=== PATIENT | female | born 1970 | race African-American/Black ===

== ENCOUNTER → 2016-10-17 | Outpatient (CLI) | payer OTHER ==
[~2016-10-17] MED LIST: AMLODIPINE BESY10 MG PO; CALCIUM; CELLCEPT500 MG PO; HYDROXYZINE HCL50 MG PO; METOCLOPRAMIDE10 MG PO; MORPHINE; NEPHROCAPS SOFT1 CAP PO; NORCO 5-325 TA1 EACH PO; NUMOISYN300 ML; PREDNISONE 5 MG5 MG PO; YAZ
== END ==
LOC: MRI 09:18
DX: M47.892 Other spondylosis, cervical region (principal)

== ENCOUNTER → 2017-04-09 | Outpatient (CLI) | payer OTHER | LOC: ULTRA 08:20 | DX: K76.0 Fatty (change of) liver, not elsewhere classified (principal) ==

== ENCOUNTER → 2017-04-09 | Outpatient (CLI) | payer OTHER | LOC: CAT 08:25 | DX: Z13.6 Encounter for screening for cardiovascular disorders (principal) ==

== ENCOUNTER → 2017-09-17 | Outpatient (CLI) | payer OTHER | LOC: RAD 07:18 | DX: K21.9 Gastro-esophageal reflux disease without esophagitis (principal); K44.9 Diaphragmatic hernia without obstruction or gangrene; R12 Heartburn ==

== ENCOUNTER → 2020-06-23 | Outpatient (CLI) | payer OTHER | LOC: LAB 07:34 | PROVIDERS: ATTEND Anesthesiology | DX: Z01.812 Encounter for preprocedural laboratory examination (principal); Z20.828 Contact with and (suspected) exposure to other viral communicable diseases ==

== ENCOUNTER → 2020-07-03 | Outpatient (CLI) | payer OTHER | LOC: CAT 15:26 | PROVIDERS: ATTEND Nurse Practitioner | DX: K42.9 Umbilical hernia without obstruction or gangrene (principal); K44.9 Diaphragmatic hernia without obstruction or gangrene ==

== ENCOUNTER → 2020-07-17 | Outpatient (CLI) | payer OTHER | LOC: LAB 12:32 | PROVIDERS: ATTEND Anesthesiology | DX: Z01.812 Encounter for preprocedural laboratory examination (principal); Z20.828 Contact with and (suspected) exposure to other viral communicable diseases ==

== ENCOUNTER → 2020-09-06 | Outpatient (CLI) | payer OTHER | LOC: LAB 09:58 | PROVIDERS: ATTEND Nurse Practitioner | DX: J02.9 Acute pharyngitis, unspecified (principal); R50.9 Fever, unspecified; M79.10 Myalgia, unspecified site; Z20.822 Contact with and (suspected) exposure to COVID-19 ==

== ENCOUNTER → 2020-10-18 | Outpatient (CLI) | payer OTHER | LOC: CAT 09:05 | PROVIDERS: ATTEND Nurse Practitioner | DX: Z13.6 Encounter for screening for cardiovascular disorders (principal); I25.10 Atherosclerotic heart disease of native coronary artery without angina pectoris; E78.00 Pure hypercholesterolemia, unspecified; K44.9 Diaphragmatic hernia without obstruction or gangrene ==

== ENCOUNTER → 2021-02-08 | Outpatient (CLI) | payer OTHER | LOC: ULTRA 09:13 | PROVIDERS: ATTEND Nurse Practitioner | DX: N83.291 Other ovarian cyst, right side (principal); Z90.710 Acquired absence of both cervix and uterus; Z90.721 Acquired absence of ovaries, unilateral ==

== ENCOUNTER → 2021-02-20 | Outpatient (CLI) | payer OTHER | LOC: CAT 08:02 | PROVIDERS: ATTEND Nurse Practitioner | DX: R18.8 Other ascites (principal); D72.829 Elevated white blood cell count, unspecified; R10.9 Unspecified abdominal pain ==

== ENCOUNTER → 2021-05-01 | Outpatient (CLI) | payer OTHER | LOC: RAD 10:15 | PROVIDERS: ATTEND Nurse Practitioner | DX: Z01.818 Encounter for other preprocedural examination (principal); Z12.31 Encounter for screening mammogram for malignant neoplasm of breast ==

== ENCOUNTER 2021-06-18 09:22 | Inpatient (IN) | payer OTHER ==
[~2021-06-18] VITALS: Ht 157.5 cm; Wt 73.5 kg
[2021-06-18 09:25] VITALS: BP 97/68
[2021-06-18 11:09] LABS: HEMATOCRIT 34.3 % (37.0-47.0); HEMOGLOBIN 11.1 gm/dL (12.0-15.0); MCH 28.7 pg (26.0-34.0); MCHC 32.4 g/dL (28.0-37.0); MCV 88.6 fL (80.0-100.0); PLATELET COUNT 634 thou/uL (150-400); RBC 3.87 mil/uL (4.20-5.00); RDW 13.9 % (10.5-14.5); WBC 16.2 thou/uL (4.0-11.0)
[2021-06-18 11:11] LABS: CALCIUM 9.4 mg/dL (8.5-10.1); CREATININE 0.6 mg/dL (0.6-1.0); POTASSIUM 4.3 mmol/L (3.5-5.1)
[2021-06-18 11:17] LABS: ALBUMIN 2.2 g/dL (3.4-5.0); TOTAL BILIRUBIN 0.2 mg/dL (0.2-1.0); TOTAL PROTEIN 6.5 g/dL (6.4-8.2)
[2021-06-18 12:54] LABS: METAMYELOCYTES 1 %; MYELOCYTES 1 %
[2021-06-18 12:55] LABS: ABSOLUTE NEUTROPHILS 11.8 thou/uL (1.4-8.2); ANISOCYTOSIS 1+
[2021-06-18 17:45] VITALS: BP 109/61
[2021-06-18 18:00] VITALS: BP 108/66
[2021-06-18 18:15] VITALS: BP 108/67
[2021-06-18 18:30] VITALS: BP 101/62
--- NOTE | 2021-06-18 18:48 | NUR ---
Patient arrived from surgery at 1745. IV to right hand not working, attempted to place, unsuccessful. Informed charge nurse and paged IV team, still awaiting response. Patient is AOX4 recieved pain medications, resting comfortably in bed. at bedside. All questions and concerns addressed
[2021-06-18 21:02] VITALS: BP 110/55
--- NOTE | 2021-06-19 03:49 | NUR ---
ASSUMED PT CARE THIS PM. PT IS ALERT AND ORIENTED X4. PT IS ADB INCISION WITH 3 LAURY DRAINS OF WHICH 2 CANNOT BE COMPRESSED DUE TO AIR LEAKAGE OF WHICH WAS INFORMED OF. PT C/O PAIN WHICH WAS MANAGED BY PRN AND SCHEDULED. PT DID NOT C/O DIZZINES OR N/V. PT IS SBA TO THE BR. PT IS ON RA. FALL PRECAUTIONS IN PLACE. WILL CONTINUE TO MONITOR.
[2021-06-19 05:57] LABS: HEMATOCRIT 29.9 % (37.0-47.0); HEMOGLOBIN 9.9 gm/dL (12.0-15.0); MCV 88.1 fL (80.0-100.0); RBC 3.39 mil/uL (4.20-5.00); RDW 13.7 % (10.5-14.5); WBC 13.6 thou/uL (4.0-11.0)
[2021-06-19 06:15] LABS: ALBUMIN 1.9 g/dL (3.4-5.0); CALCIUM 8.6 mg/dL (8.5-10.1); CREATININE 0.8 mg/dL (0.6-1.0); PHOSPHORUS 4.5 mg/dL (2.5-4.9); POTASSIUM 3.5 mmol/L (3.5-5.1)
[2021-06-19 06:37] VITALS: BP 98/61
[2021-06-19 07:43] VITALS: BP 96/55
[2021-06-19] MEDS ORDERED: HYDROXYZINE HCL50 MG PO ×2 (12:40→13:15)
[2021-06-19] MEDS ORDERED: CELLCEPT500 MG PO (12:41)
[2021-06-19] MEDS ORDERED: CYMBALTA60 MG PO (12:42)
[2021-06-19] MEDS ORDERED: COZAAR 25 MG TA25 M1 PO (12:43)
[2021-06-19] MEDS ORDERED: RIZATRIPTAN10 M1 PO (12:44)
[2021-06-19] MEDS ORDERED: LEVO-T50 MCG PO (12:44)
[2021-06-19] MEDS ORDERED: KLOR-CON 1010 MEQ PO (12:45)
[2021-06-19 16:55] VITALS: BP 94/54
--- NOTE | 2021-06-19 17:09 | NUR ---
Pt A & O x4. Pt Vs stable. Pt received medications as ordered. Pt received PRN medications as requested by pt. Pt ambulates to bathroom. Pt has [address] Pt is x 1 assist with ADLs and cares. This AM pt was asked by this nurse and tech after giving care to pt if pt needed any other assistance. Pt stated "no, I am fine". Pt was given PRN pain medications see MAR. This AM, Pt did not state to this RN or tech that her ABD dressing needed to be changed and bled through dressing onto bedding. Management was notified of this incident. This RN and tech changed pt bedding and this RN changed wound dressing. Dr Madrigal was also at bedside and assessed wound. Dr. Madrigal also was re notified of SUPRIYA drains not suctioning. Pt was assisted to bathroom after wound dressing changed. Pt gait steady. Pt SCDs placed on pt bilat legs and pump turned on after she went to bathroo. This afternoon pt had nausea. Dr. Nicole notified and pt received new order for nausea medications. pt received nausea medications, see MAR. Pt also received new IV to left upper arm, by PICC nurse. Old IV was burning pt. Nurse and tech with hourly rounding asked to pt if we can assess her ABD dressing to see if it needed changing and pt replied "no, everything is fine". Pt is able to make needs known
[2021-06-19 20:56] VITALS: BP 101/48
[2021-06-20 06:07] VITALS: BP 107/60
[2021-06-20 06:09] LABS: HEMATOCRIT 30.4 % (37.0-47.0); HEMOGLOBIN 9.9 gm/dL (12.0-15.0); MCH 28.9 pg (26.0-34.0); MCHC 32.4 g/dL (28.0-37.0); RBC 3.41 mil/uL (4.20-5.00); RDW 13.9 % (10.5-14.5); WBC 11.8 thou/uL (4.0-11.0)
[2021-06-20 06:27] LABS: CREATININE 0.7 mg/dL (0.6-1.0); POTASSIUM 3.8 mmol/L (3.5-5.1)
--- NOTE | 2021-06-20 06:28 | NUR ---
PT BEEN RESTING IN NO ACUTE DISTRESS.A/OX4.VSS.PAIN MEDS GIVEN SCHEDULED AND PRN PER PT REQUEST.PT VOICED PAIN THAT PAIN HAS BEEN CONTROLLED.ABD WOUND WITH DRESSING INTACT.LAURY DRAINS WITH TOTAL OF 20CC OF SEROSANNGUIOUS DRAINAGE.AMBULATED W/STEADY GAIT TO BR.NO COMPLAINS OR NEEDS VOICED BY THE PT AT THIS TIME.WILL CONT TO MONITOR PER POC.
--- NOTE | 2021-06-20 09:07 | NUR ---
RD consult received. Admit with wound infection s/p adominoplasty in May 2021. Surgery following, likely will have wound vac soon. Visit this am, pt eating well and tolerates high protein foods. No significant wt changes. Uses Premiere protein drinks and agrees to Ensure Max while here. Has menu to order own food selections. Low nutrition risk with appropriate nutrition interventions in place
--- NOTE | 2021-06-20 11:28 | NUR ---
PT ADMITTED RELATED TO POST OP INFECTION. CM REVIEWED CHART AND SPOKE WITH CARE TEAM. CM MET WITH PT AND SPOUSE AT BEDSIDE YESTERDAY. PT WAS A&O 4. CM ROLE INTRODUCED. PT INDICATED SHE RESIDES IN A HOUSE WITH HER SPOUSE WITH 3 STEPS TO ENTER AND 16 INSIDE. PT INDICATED SHE HAD BEEN INDEPENDENT WITH GAIT AND ADLS ALTHOUGH SHE HAD NEEDED SOME ASSISTANCE SINCE HER RECENT SURGERY. PT INDICATED NO HH OR OP THERAPY HX. PT HAD SURGERY AND HAS ABD DRAIN. PT IS ON IV VANC. CARE TEAM INDICATED THAT PT IS TO HAVE SURGERY AGAIN TOMORROW AND WILL HAVE A WOUND VAC ADMINISTERED. CM FOLLOWING REGARDING DC PLANNING.
--- NOTE | 2021-06-20 15:08 | NUR ---
PICC PLACED FOR HOME ABX
--- NOTE | 2021-06-20 17:20 | HC ---
[facility] [place] [address] CONSULTATION Name: HIREN GASTELUM Room #: 460-P [facility] IN M.R.#: [id number] Admission: 06/18/21 Attend Phys: Klaus Madrigal MD Discharge: Date of : 72 Report #: [id number] THIS REPORT FOR: cc: Christina Willis Beth RNP Althoff, Jeffrey R. MD ~ DATE OF SERVICE: 06/19/2021 CHIEF COMPLAINT: Surgical wound to the abdominal wall. HISTORY: This is a 50-year-old female patient who underwent an abdominoplasty in [place] by a plastic surgeon on 06/02/2021, she was complicated by postoperative hemorrhage requiring an ICU stay and reoperation. She received multiple transfusions, has developed necrosis in the periumbilical region. She has undergone some debridement here. I have been asked to see her with regard to wound care recommendations. PAST MEDICAL HISTORY: Positive for history of scleroderma, previous . She has prior breast implants, had previous ectopic , previous hysterectomy, cholecystectomy, anxiety, Raynaud's, fibromyalgia, sleep apnea, hypertension, gastroesophageal reflux disease, and sickle cell trait. SOCIAL HISTORY: Positive for occasional marijuana use. Negative for other tobacco use. Occasional alcohol consumption. MEDICATIONS: Include metoclopramide, amlodipine, hydroxyzine, prednisone, morphine, CellCept, Flaxseed, calcium, B complex. ALLERGIES: TOPIRAMATE AND LATEX. REVIEW OF SYSTEMS: CONSTITUTIONAL: The patient denies fever, chills, weight loss. NEUROLOGICAL: The patient denies focal weakness, tingling. EYES: The patient denies visual changes, redness or drainage. ENT: The patient denies earache, nasal drainage or sore throat. CARDIOVASCULAR: The patient denies chest pain, palpitations or diaphoresis. PULMONARY: The patient denies cough or shortness of breath. GASTROINTESTINAL: The patient denies nausea or diarrhea. Does have abdominal pain in the periumbilical region. Others systems in a 14-point review of systems are negative. PHYSICAL EXAMINATION: VITAL SIGNS: At this time include temperature 35.8, pulse 95, respiratory rate of 18, blood pressure 96/55. GENERAL: This is a well-developed female [place] [address] CONSULTATION Name: HIREN GASTELUM Room #: 460-P [facility] IN M.R.#: [id number] Admission: 06/18/21 Attend Phys: Klaus Madrigal MD Discharge: Date of : 72 Report #: [id number] distress. HEENT: Head normocephalic. Nose and throat clear. NECK: Supple. LUNGS: Clear. ABDOMEN: Soft. There is a surgical incision across the lower portion of the abdominal wall. The lateral portions appeared to be healing. In the central area, there is open wound in the periumbilical region. The umbilicus is preserved. There is some subcutaneous fat that appears to be viable, a very little granulation tissue, some dry eschar-type tissue on the caudal aspect of the incision line. There is mild tenderness. No obvious purulence at this time. NEUROLOGIC: The patient is alert and oriented and appropriate. LABORATORY STUDIES: Sodium 140, potassium 3.5, chloride 105, CO2 of 24, BUN 8, creatinine 0.8, glucose of 81. White blood cell count 13.6 with a hemoglobin of 9.9, hematocrit of 29.9. CLINICAL IMPRESSION: 1. Surgical wound to the abdominal wall, status post postoperative hemorrhage following abdominoplasty in [place], 06/02/2021, now status post additional debridement here, 06/18/2021. 2. Anxiety. 3. History of fibromyalgia. 4. History of hypertension. 5. Possible history of scleroderma. RECOMMENDATIONS: At this point in time, recommend a quarter strength Dakin's moist gauze packing for now. She has antibiotics ordered. We discussed this case with Dr. Madrigal. She may require additional debridement. We will consider placing a wound VAC in order to facilitate wound healing. It is questionable as to whether the umbilicus will ultimately survive or not. The patient has specifically asked about vacationing in [place] and getting in the water and I have instructed that she not do so until all wound issues have resolved and I do not think that these will be resolved by July. I discussed this in detail with the patient and her family at bedside as well as with Dr. Madrigal. I appreciate being asked to see her in consultation. <ELECTRONICALLY SIGNED> By: Chidi Ellis MD 06/20/21 1720 1049 [id number] Chidi Ellis MD /nt
--- NOTE | 2021-06-20 19:22 | NUR ---
Pt A & O x4. Pt received medications as ordered and also received PRN medications as requested by pt, see MAR. Pt is SBA with cares and ADLs. SCDs in place to bilat legs. Pt wound dressing changed twice this shift. Pt is room air. Pt was assisted with call light with other floor nurse, and pt stated she wanted her wound dressing to be changed and asked for this RN. Staff reported to this RN that pt was assertive and not pleasant with other staff with pt requests in a demanding demeanor. Pt VS stable. PT is able to make needs known. Nurse activity manager was notified by pt.
[2021-06-20 19:40] VITALS: BP 109/44
[2021-06-21 05:18] VITALS: BP 102/64
--- NOTE | 2021-06-21 06:39 | NUR ---
PT BEEN RESTING IN NO ACUTE DISTRESS.SPOUSE AT BEDSIDE AT THE BEGINNING OF THE SHIFT.VSS.PT A/OX4.DENIES ANY NEEDS. PT HERE W/POST-OPE INFECTION,IVF ANTIBIOTICS.REDRESSED ABD SURGICAL WOUND X1 DUE TO DRESSING BEING SATURATED,TOLERATED.PAIN MEDS GIVEN PER PT'S REQUEST AND PER SEP.PT STATED PAIN WELL CONTROLLED.NPO AFTER MIDNIGHT FOR SURGERY TODAY.LAURY DRAINS WITH SMALL AMOUT OF DRAINAGE.PT REFUSED SCDS THROUGHOUT THE NOC.PREFERED TO SLEEP W/O GOWN ON.PT DENIES ANY NEEDS THIS AM.WILL CONT W/POC.
[2021-06-21 08:00] VITALS: BP 113/72
[2021-06-21 10:42] VITALS: BP 123/73
--- NOTE | 2021-06-21 12:07 | PATH ---
[facility] [address] [place] [address] PATHOLOGY RPT PROCEDURE Name: HIREN BARRIENTOS Room #: 460-P ADM IN M.R.#: [id number] Admission: 06/18/21 Date of : 72 Discharge: Report #: [id number] Path Case #: [id number] [facility] Accession Number: [id number] . 01 Material submitted: . abdomen - ABDOMINAL WALL WOUND TISSUE. Modifiers: wall . 01 Clinical history: . INCISION AND DRAINAGE ABDOMINAL WALL . 02 Diagnosis: Abdominal wall wound tissue, excision: - Skin and soft tissue with gangrenous type necrosis and fat necrosis. - Negative for atypia or malignancy. (ANK:pit; 06/20/2021) QTP 06/20/2021 1353 Local . 02 Electronically signed: . Basia Hinds MD, Pathologist NPI- [id number] . 01 Gross description: . The specimen is received in formalin, labeled "Hiren Barrientos, abdominal wall wound tissue". Received is an irregular segment of light zaidi to dark zaidi and dusky skin with underlying soft tissue measuring 4.5 x 1.0 x 2.2 cm. The specimen is serially sectioned and submitted representatively in cassette A1.([facility]; 06/19/2021) [facility] 06/19/2021 1345 Local . 02 Pathologist provided ICD-10: I96, M79.89 . 02 CPT . 236712 Specimen Comment: A courtesy copy of this report has been sent to [phone] Specimen Comment: [id number] Specimen Comment: Report sent to / DR STORY Specimen Comment: A duplicate report has been generated due to demographic updates. Performed at: 01 [place] [id number] [address] [id number] MD Markus Murry MD Phone: [phone] Performed at: [address] [id number] [address] [address] PATHOLOGY RPT PROCEDURE Name: XIOMARA BARRIENTOSAnitha Baugh Room #: 460-P ADM IN M.R.#: [id number] Admission: 06/18/21 Date of : 72 Discharge: Report #: [id number] Path Case #: [id number] MD Erika Wang MD Phone: [phone]
--- NOTE | 2021-06-21 16:56 | NUR ---
CARE TEAM INDICATED THAT PT IS HAVING WASH OUT THIS DAY AND A WOUND VAC ADMINISTERED. CM FOLLOWING REGARDING DC PLANNING.
--- NOTE | 2021-06-21 20:08 | NUR ---
PATIENT ARRIVED BACK TO UNIT POST OP WITH ABDOMINAL WOUND VAC IN PLACE. 1 LAURY DRAIN PRESENT. IV VANC ADMINISTERED UPON ARRIVAL. PATIENT VOICED PAIN AND NAUSEA THROUGH OUT THE AFTERNOON - SEE EMAR FOR DILAUDID AND ZOFRAN ADMIN. ORDER FOR ONETIME EXTRA DOSE OF ZOFRAN. GIVEN WITH SYMPTOM RELIEF. PATIENT WAS ABLE TO EAT DINNER AFTER. AT BEDSIDE THROUGH OUT SHIFT. ANSWERED ALL QUESTIONS AND CONCERNS. UPDATED ON PLAN OF CARE. REPORT GIVEN TO NIGHT RN MARYANA.
[2021-06-21 20:37] VITALS: BP 120/72
[2021-06-22 04:47] VITALS: BP 112/76
--- NOTE | 2021-06-22 05:26 | NUR ---
Pt been resting in no acute distress.Post op#1 abdominal wash out and wound vac placement.Pt c/o nausea at the beginning of the shift after dilaudid.Dr cleaning was notified to change pain management to something else.Orders were given see mar.No c/o nausea with the new pain regimen.Wound vac to suction 125mmHG and j-p drain in place.Dr bernal rounded and changed antibitic therapy,administered and tolerated by the patient.No concerns voiced by the patient or family.
[2021-06-22 11:30] VITALS: BP 106/71
[2021-06-22 15:39] LABS: HEMOGLOBIN 8.8 gm/dL (12.0-15.0); MCH 28.5 pg (26.0-34.0); MCHC 32.5 g/dL (28.0-37.0); MCV 87.7 fL (80.0-100.0); RBC 3.07 mil/uL (4.20-5.00); WBC 18.1 thou/uL (4.0-11.0)
[2021-06-22 15:53] LABS: CALCIUM 7.1 mg/dL (8.5-10.1); CREATININE 0.5 mg/dL (0.6-1.0)
[2021-06-22 15:55] LABS: POTASSIUM 2.9 mmol/L (3.5-5.1)
[2021-06-22 16:38] LABS: MAGNESIUM 1.6 mg/dL (1.8-2.4)
--- NOTE | 2021-06-22 17:09 | NUR ---
CM VISITED WITH PT AND SPOUSE AT BEDSIDE THIS DAY. CM INDICATED THAT CARE TEAM ANTICIPATE THAT PT MAY BEED PROLONGED IV ABX. CM EXPLAINED HOME INFUSION, OP INFUSION, FACILITY. SHE AND SPOUSE INDICATED THAT THEY WOULD PREFER HOME INFUION. CM INFORMED THEM OF PROVIDERS [facility], [facility], AND [facility]. THEY INDICATED NO PREFERANCE THEY INDICATED THAT REFERRAL COULD BE SENT TO [facility] DR. HATCH WORKS WELL AND REQULARLY WITH THEM FOR THEM TO CRUZ OUT HER POSSIBLE COST FOR INFUSION SERVICES. CM EXPLAINED THAT WOULD ALSO LIKELY GO HOME WITH VAC PER DR. BOUDREAUX AND THAT HH WOULD BE NEEDED TO FOLLOW FOR IV ABX AND VAC. CM OFFERED LIST OF HH PROVIERS PT INDICATED NO NEED OR PREFEREANCE. CM INDICATED THAT [facility] AND SHE INDICATED THAT REFERAL COULD BE SENT TO THEM WELL. REFERRALS FAXED. IT LOOKS LIKE DR. BOUDREAUX IS PLANNING A [place] CHANGE MODAY BUT SHOULD PT BE MEDICALLY STABLE TO DC OVER WEEKEND CONTACT MUNIR. [facility] P: FAX: [facility] P: F:
[2021-06-22 19:54] VITALS: BP 115/66
--- NOTE | 2021-06-23 04:29 | NUR ---
assumed care approx 1900 evening 06/22. pt alert and oriented x4, appropriate and cooperative. wound vac in place with abdominal dressing in place intact. LAURY drain bulb intact compressed with scant amt drainage to bottle. IV site to right upper arm with IVF infusing. pt given pain meds as ordered. pt appears to be sleeping soundly. bed alarm on and call light in reach. will continue to monitor.
[2021-06-23 08:38] VITALS: BP 108/81
--- NOTE | 2021-06-23 18:44 | NUR ---
Pt is A & O x4. Pt VS stable. Pt received medications as ordered and also received PRN medications as requested by pt. Pt has wound vac in place. Pt has LAURY drain to left ABD noted. Pt is independent with cares and ADLs and is up ad jose. Pt gait is steady. Pt took shower without this nurse knowledge and Picc line to right upper arm got wet and as well as wound vac. Picc line was re dressed this shift and picc nurse assessed line this shift. This RN assess pt wound vac dressing post shower. Surgery information strategist doctorStefan was notified and stated pt can take shower if wound vac seal is intact. Pt educated on notifiying staff if wants shower to take proper precautions. Pt got irritated and making inappropriate comments to staff about incident. wound vac cannister changed this shift.
[2021-06-23 20:37] VITALS: BP 129/78
--- NOTE | 2021-06-24 04:09 | NUR ---
PT IS A/O X4 AND IS UP AD SAMIRA. ROOM AIR. VSS. WOUNDVAC IN PLACE AND WORKING APPROPRIATELY. PT C/O PAIN. PRN PAIN MEDICATION GIVEN DIRECTED. PT IS PLEASANT AND COOPERATIVE. CALL LIGHT IS WITHIN REACH. PT CALLS OUT APPROPRIATELY FOR ASSISTANCE.
[2021-06-24 08:04] VITALS: BP 127/75
--- NOTE | 2021-06-24 10:26 | NUR ---
ASSUMED PT CARE THIS AM. PT IS ALERT & ORIENTED X4. PT HAS IV SITE ON JESUS ALBERTO SINGLE LUMEN PICC LINE. PT HAS LAURY DRAIN ON L ABDOMEN AND WOUND VAC. GIVEN PAIN MEDICATIONS PER PT REQUEST. INFUSED ANTIBIOTICS PER SCHEDULED. PT IS ON ROOM AIR. PLAN IS TO CHANGE WOUND VAC ON FRIDAY AND POSSIBLE DC HOME WITH HOME HEALTH ON FRIDAY PER PA. PT AT THE BEDSIDE. WILL CONTINUE TO MONITOR PT. FOLLOW POC.
[2021-06-24 10:33] LABS: ABSOLUTE NEUTROPHILS 12.3 thou/uL (1.4-8.2); BASOPHILS 0.5 % (0.0-2.0); EOSINOPHILS 4.4 % (0.0-3.0); HEMATOCRIT 28.3 % (37.0-47.0); LYMPHOCYTES 14.8 % (24.0-44.0); MCH 27.8 pg (26.0-34.0); MCHC 31.7 g/dL (28.0-37.0); MCV 87.9 fL (80.0-100.0); MONOCYTES 8.5 % (1.0-8.0); PLATELET COUNT 460 thou/uL (150-400); POLYS 71.8 % (36.0-66.0); RBC 3.21 mil/uL (4.20-5.00); WBC 17.2 thou/uL (4.0-11.0)
[2021-06-24 11:02] LABS: ALBUMIN 1.9 g/dL (3.4-5.0); CALCIUM 8.4 mg/dL (8.5-10.1); CREATININE 0.7 mg/dL (0.6-1.0); POTASSIUM 3.8 mmol/L (3.5-5.1); TOTAL BILIRUBIN 0.2 mg/dL (0.2-1.0); TOTAL PROTEIN 5.5 g/dL (6.4-8.2)
[2021-06-24 20:00] VITALS: BP 118/74
--- NOTE | 2021-06-25 05:04 | NUR ---
NO SIGNIFICANT CHANGES DURING THE NIGHT. PT HAS BEEN COOPERATIVE DURING THE SHIFT. SHE CONTINUES TO C/O ABDOMINAL PAIN. PRN PAIN MEDICATION GIVEN. DENIED ANY SIGNIFICANT NAUSEA. WOUND VAC INTACT TO ABDOMINAL WOUND. LLQ LAURY DRAIN PATENT. PT IS UP AD SAMIRA WITH STEADY GAIT TO THE BTR. VSS. PROGRESSING TOWARD POC GOALS. WILL MONITOR FURTHER.
[2021-06-25 07:17] VITALS: BP 118/76
--- NOTE | 2021-06-25 07:39 | NUR ---
PT REPORTS THAT SHE HAD A BOWEL MOVEMENT LAST NIGHT BUT IT WAS NOT OBSERVED BY RN.
--- NOTE | 2021-06-25 11:23 | NUR ---
ASSUMED PT CARE THIS AM. PT HAS IV SITE ON JESUS ALBERTO SINGLE LUMEN PICC LINE. GIVEN PAIN MEDICATION PER PT REQUEST. CALLED WOUND NURSE TO CHANGE WOUND VAC CANISTER THIS AM. PT REFUSED MIRALAX THIS AM. PT IS ON ROOM AIR. PT HAS LAURY DRAIN L ABDOMEN. PT AT THE BEDSIDE. WILL CONTINUE TO MONITOR PT. FOLLOW POC.
[2021-06-25 15:35] VITALS: BP 135/80
--- NOTE | 2021-06-25 16:38 | NUR ---
WOUND CONSULT; THE WOUND MEASURES 20 X 12 X 4.5 S/P SURGICAL DEBRIDEMENT. THE WOUND HAS NO ODOR TODAY. THE PATIENT TOLERATED THE ASSESSMENT AND WOUND VAC APPLICATION WELL. THE WOUND BED IS A HEALTHY RED WITH SOME FRIABILITY. DR ALLRED AND DR BOUDREAUX AGREE ON A WOUND VAC.
--- NOTE | 2021-06-25 16:49 | NUR ---
PT HAD WOUND VAC REPLACED THIS DAY. [facility] INDICATED THAT ONCE HOSPITAL BILL DROPS THAT PT WILL LIKELY BE COVERED AT %100 FOR HOME INFUSION SERVICES. [facility] ACCEPT. ANTICIPATING POSSIBLE DC TOMORROW. CM FOLLOWING REGARDING DC PLANNING.
[2021-06-25 21:06] VITALS: BP 137/72
--- NOTE | 2021-06-26 04:35 | NUR ---
Pt. rested quietly at intervals during the night when checked on during frequent rounds. She has been medicated for c/o abdominal pain (see emar) with some relief noted. No c/o nausea. Wound vac to abdomen is dry and intact. Up ad jose to the bathroom.
[2021-06-26 05:57] LABS: HEMATOCRIT 27.3 % (37.0-47.0); HEMOGLOBIN 8.8 gm/dL (12.0-15.0); MCH 28.3 pg (26.0-34.0); MCHC 32.3 g/dL (28.0-37.0); MCV 87.6 fL (80.0-100.0); RBC 3.12 mil/uL (4.20-5.00); RDW 14.3 % (10.5-14.5)
[2021-06-26 06:30] LABS: ALBUMIN 1.9 g/dL (3.4-5.0); CALCIUM 8.3 mg/dL (8.5-10.1); CREATININE 0.7 mg/dL (0.6-1.0); PHOSPHORUS 3.9 mg/dL (2.6-4.7); POTASSIUM 3.6 mmol/L (3.5-5.1)
--- NOTE | 2021-06-26 14:11 | NUR ---
ASSUMED PT CARE THIS AM. PT RECEIVED WOUND VAC TODAY. PLAN IS TO CHANGE WOUND VAC TOMORROW. GIVEN PAIN MEDICATIONS PER PT REQUEST. INFUSED SCHEDULED ANTIBIOTICS. PT HAS LAURY DRAIN L ABDOMEN. PT HAS JESUS ALBERTO SINGLE LUMEN PICC LINE. PT IS UP AD SAMIRA. PT AT THE BEDSIDE. WILL CONTINUE TO MONITOR PT. FOLLOW POC.
--- NOTE | 2021-06-26 15:08 | PATH ---
[facility] [address] [place] [address] PATHOLOGY RPT PROCEDURE Name: HIREN BARRIENTOS Lupis Room #: 460-P ADM IN M.R.#: [id number] Admission: 06/18/21 Date of : 72 Discharge: Report #: [id number] Path Case #: [id number] LCA Accession Number: [id number] . 01 Material submitted: . abdomen - ABDOMINAL WOUND . 01 Clinical history: . INCISION AND DRAINAGE ABDOMINAL WALL WOUND VAC PLACEMENT . 02 Diagnosis: Skin and soft tissue (abdominal wound): - Necrotic deep penetrating ulceration of skin with necrotizing cellulitis and panniculitis. (KONSTANTIN:kathi; 06/25/2021) MBR 06/25/2021 1400 Local . 02 Comment: We find no evidence of malignancy in any of the tissue examined. (KONSTANTIN:kathi; 06/25/2021) . 02 Electronically signed: . Raul Portillo MD, Pathologist NPI- [id number] . 01 Gross description: . The specimen is received in formalin, labeled "Hiren Barrientos, abdominal wound". Received is an irregular excision of dusky prekins-zaidi to perkins-brown, necrotic-appearing skin with attached underlying soft tissue measuring 16.2 x 6.1 x 5.0 cm in greatest dimensions. Sectioning reveals yellow-zaidi to yellow-brown cut surfaces throughout. The specimen is submitted representatively in cassette A1. ([facility]; 06/22/2021) QA/QA 06/22/2021 1343 Local . 02 Pathologist provided ICD-10: L98.499, L03.311, M79.3 . 02 CPT . 464455 Specimen Comment: A courtesy copy of this report has been sent to [phone], [phone] Specimen Comment: [id number] Specimen Comment: Report sent to / DR ACKERMAN Specimen Comment: A duplicate report has been generated [place] [address] PATHOLOGY RPT PROCEDURE Name: HIREN BARRIENTOS Room #: 460-P [facility] IN .R.#: [id number] Admission: 06/18/21 Date of : 72 Discharge: Report #: [id number] Path Case #: [id number] Performed at: 01 [facility] Joana Arteaga [address], [place] [id number] MD Markus Murry MD Phone: [phone] Performed at: [address], [place], [place] [id number] MD Raul Portillo MD Phone: [phone]
--- NOTE | 2021-06-26 16:58 | NUR ---
CM MET WITH PT AND SPOUSE THIS AM. CM INDICATED THAT [facility] CAN ACCEPT PT FOR HH NURSING UPON DC. CM INDICATED THAT PT SHOULD BE COVERED AT %100 FOR HOME INFUSION SERVICES UPON DC AND THAT [facility] WANTED PT ON IV VANC Q12 FOR ONE WEEK INITIALLY. SHE IS AWARE AND AGREEABLE. [facility] TO COME TOMORROW AT 9:00AM FOR BEDSIDE TEACH. PT'S HOME WOUND VAC DELIVERED THIS DAY. ANTICAPTED DC HOME WITH [facility] AND [facility] TOMORROW. WV TO BE CHANGED TOMORROW.
[2021-06-26 21:11] VITALS: BP 122/80
--- NOTE | 2021-06-27 06:04 | NUR ---
Pt. rested quietly at intervals during the night when checked on during frequent rounds. She has been given pain meds for c/o abdominal pain (see emar) with some relief of pain. Wound vac patent to abdomen. No c/o nausea.
[2021-06-27 08:14] VITALS: BP 131/78
--- NOTE | 2021-06-27 09:29 | NUR ---
WOUND CARE F/U; ROUNDING WITH [facility] [employer] TODAY. THE PATIENT IS DISCHARGING TODAY TO HOME WITH HOME HEALTH. ALL PATIENT TEACHING WAS COMPLETED WITH THE PATIENT AND WITH THE PRESENT. ALL THE QUESTIONS WERE ANSWERED THE PATIENT VERBALIZED. THERE HAS NO ODOR IN THE WOUND. RED GRANULATION BUD SEEN. THE WOUND WAS CLEANSED AND PICTURED. THE WOUND VAC DRESSING WAS CHANGED. RECOMMENDATION; HOME TODAY WITH .
[2021-06-27 09:41] VITALS: BP 131/78
--- NOTE | 2021-06-27 10:26 | NUR ---
PT ALERT AND ORIENTED TIMES FOUR. VSS. PT C/O PAIN PRN PAIN MEDICATIONS GIVEN WITH SOME RELEIF. PT TOLERATES MEDS AND BREAKFAST THIS MORNING. WOUND VAC CHANGED PER WOUND TEAM THIS MORNING. EDUCATION FOR HOME IV THERAPY DONE THIS MORNING PER HOME HEALTH NURSE. PT AT BEDSIDE FOR EDUCATION. PLAN TO DISCHARGE HOME TODAY.
[2021-06-27] MEDS ORDERED: MIRALAX17 GM PO (10:57)
[2021-06-27] MEDS ORDERED: COLACE 100 MG100 MG PO (10:57)
[2021-06-27] MEDS ORDERED: HYDROCODON-ACE1 EAC7 PO (10:57)
--- NOTE | 2021-06-27 14:42 | NUR ---
CARE TEAM INDICATED THAT PT IS MEDICALLY STABLE TO DISCHARGE HOME THIS DAY. [facility] DID BEDSIDE TEACH THIS AM AND INDICATED THAT PT AND HER SPOUSE DID VERY WELL. [facility] TO ACCEPT FOR NURSING SOC TOMORROW. CM FAXED FINAL ORDERS TO [facility]. PT'S HAS HOME WOUND VAC FROM [facility] TO TAKE HOME WITH HER THIS DAY. PT'S SPOUSE TO PROVIDE TRANSPORT HOME THIS DAY. NO OTHER CM INTERVNETION INDICATED. CASE CLOSED.
== END 2021-06-27 15:18 | disposition home health service (06) | DRG 856 ==
LOC: ER 09:22 → EROBS 12:55 → 4W 12:55 → TBA 15:24 → 4W 17:35
PROVIDERS: Emergency Medicine; Hospitalist; Specialist; ADMIT Surgery; ATTEND Surgery
PROC: 0JB80ZZ Excision of Abdomen Subcutaneous Tissue and Fascia, Open Approach (ICD-10-PCS; principal; 2021-06-18)
PROC: 05HY33Z Insertion of Infusion Device into Upper Vein, Percutaneous Approach (ICD-10-PCS; 2021-06-20)
PROC: 0JB80ZZ Excision of Abdomen Subcutaneous Tissue and Fascia, Open Approach (ICD-10-PCS; 2021-06-21)
DX: T81.49XA Infection following a procedure, other surgical site, initial encounter (principal); E43 Unspecified severe protein-calorie malnutrition; R65.11 Systemic inflammatory response syndrome (SIRS) of non-infectious origin with acute organ dysfunction; D62 Acute posthemorrhagic anemia; E87.6 Hypokalemia; D57.3 Sickle-cell trait; F41.9 Anxiety disorder, unspecified; K21.9 Gastro-esophageal reflux disease without esophagitis; E03.9 Hypothyroidism, unspecified; I10 Essential (primary) hypertension; F12.90 Cannabis use, unspecified, uncomplicated; M79.7 Fibromyalgia; F32.9 Major depressive disorder, single episode, unspecified; B95.7 Other staphylococcus as the cause of diseases classified elsewhere; B95.2 Enterococcus as the cause of diseases classified elsewhere; E66.01 Morbid (severe) obesity due to excess calories; D72.829 Elevated white blood cell count, unspecified; M34.9 Systemic sclerosis, unspecified; Z20.822 Contact with and (suspected) exposure to COVID-19; E16.2 Hypoglycemia, unspecified; B37.9 Candidiasis, unspecified; Z90.710 Acquired absence of both cervix and uterus; Z90.49 Acquired absence of other specified parts of digestive tract; Z88.8 Allergy status to other drugs, medicaments and biological substances; Z91.040 Latex allergy status; Z68.29 Body mass index [BMI] 29.0-29.9, adult
CPT/HCPCS: 10040; 27000; 50010; 50101; 50331; 50386; 50403; 50643; 50970; 53078; 56525; 57092; 57103; 62110; 62900; 70005

== ENCOUNTER → 2021-07-10 | Outpatient (CLI) | payer OTHER ==
[~2021-07-10] MED LIST changes: +COLACE 100 MG100 MG PO; +COZAAR 25 MG TA25 M1 PO; +CYMBALTA60 MG PO; +HYDROCODON-ACE1 EAC7 PO; +KLOR-CON 1010 MEQ PO; +LEVO-T50 MCG PO; +MIRALAX17 GM PO; +RIZATRIPTAN10 M1 PO
--- NOTE | 2021-07-10 15:36 | NUR ---
A #4F SINGLE LUMEN PICC WAS PLACED PER HOSPITAL POLICY AFTER A BEDSIDE TIMEOUT WAS COMPLETED. THE LINE WAS EXCHANGED VIA OT TECNIQUE. THE LINE WAS TRIMMED TO 40CM AND ADVANCED AND CONFIRMED AT 3CM EXTERNAL. SECURED AND RELEASED FOR USE
[2021-07-10 15:47] LABS: BASOPHILS 0.5 % (0.0-2.0); EOSINOPHILS 1.2 % (0.0-3.0); HEMATOCRIT 28.1 % (37.0-47.0); HEMOGLOBIN 9.2 gm/dL (12.0-15.0); LYMPHOCYTES 21.1 % (24.0-44.0); MCH 27.5 pg (26.0-34.0); MCHC 32.9 g/dL (28.0-37.0); MCV 83.6 fL (80.0-100.0); MONOCYTES 12.6 % (1.0-8.0); PLATELET COUNT 478 thou/uL (150-400); POLYS 64.6 % (36.0-66.0); RBC 3.36 mil/uL (4.20-5.00); RDW 14.7 % (10.5-14.5); WBC 7.7 thou/uL (4.0-11.0)
[2021-07-10 16:03] LABS: ALBUMIN 2.3 g/dL (3.4-5.0); CALCIUM 8.9 mg/dL (8.5-10.1); CREATININE 0.8 mg/dL (0.6-1.0); POTASSIUM 3.9 mmol/L (3.5-5.1); TOTAL BILIRUBIN 0.2 mg/dL (0.2-1.0); TOTAL PROTEIN 6.2 g/dL (6.4-8.2)
--- NOTE | 2021-07-10 16:09 | NUR ---
PT OF DR. HATCH'S RECEIVING HOME HEALTH VANCOMYCIN INFUSIONS CAME TO US BECAUSE HER PICC LINE WAS NO LONGER FLUSHING OR DRAWING. DRESSING REMOVED AND NO VISIBLE KINKS IN LINE. FORCE REQUIRED TO FLUSH LINE AND NO BLOOD RETURN. RN WHO PLACED LINE LOOKED AT IT AND OBSERVED THAT IT HAD MIGRATED OUT QUITE A BIT. NOTIFIED [facility] OFFICE WHO GAVE ORDER TO REPLACE LINE SINCE PT WILL LIKELY NEED 1-2 MORE WEEKS OF INFUSIONS. VAT CAME AND RE-INSERTED LINE USING ULTRASOUND AND GUIDE WIRE. LABS DRAWN AND RESULTS FAXED TO [facility] OFFICE ALONG WITH PICC LINE CONFIRMATION. PT CLEARED TO CONTINUE HOME INFUSIONS. LEFT UNIT IN STABLE CONDITION.
== END | disposition home or self-care (01) ==
LOC: OPONC 12:53
PROVIDERS: ATTEND Specialist
DX: Z45.2 Encounter for adjustment and management of vascular access device (principal); I10 Essential (primary) hypertension; K21.9 Gastro-esophageal reflux disease without esophagitis; M79.7 Fibromyalgia; E03.9 Hypothyroidism, unspecified; F41.9 Anxiety disorder, unspecified; G47.33 Obstructive sleep apnea (adult) (pediatric); Z98.890 Other specified postprocedural states; Z90.49 Acquired absence of other specified parts of digestive tract; Z79.899 Other long term (current) drug therapy; Z90.710 Acquired absence of both cervix and uterus; Z91.040 Latex allergy status; Z88.8 Allergy status to other drugs, medicaments and biological substances

== ENCOUNTER → 2021-07-11 | Outpatient (CLI) | payer OTHER | LOC: HYPER | PROVIDERS: ATTEND Emergency Medicine Emergency Medical Services | DX: T81.49XA Infection following a procedure, other surgical site, initial encounter (principal); T81.31XA Disruption of external operation (surgical) wound, not elsewhere classified, initial encounter; L94.0 Localized scleroderma [morphea]; I73.00 Raynaud's syndrome without gangrene; D57.3 Sickle-cell trait; E03.9 Hypothyroidism, unspecified; I10 Essential (primary) hypertension; G47.30 Sleep apnea, unspecified; E66.9 Obesity, unspecified; M79.7 Fibromyalgia; K21.9 Gastro-esophageal reflux disease without esophagitis; K21.00 Gastro-esophageal reflux disease with esophagitis, without bleeding; F41.9 Anxiety disorder, unspecified; Z68.29 Body mass index [BMI] 29.0-29.9, adult; Z90.49 Acquired absence of other specified parts of digestive tract; Z90.710 Acquired absence of both cervix and uterus; Y92.238 Other place in hospital as the place of occurrence of the external cause; Y83.8 Other surgical procedures as the cause of abnormal reaction of the patient, or of later complication, without mention of misadventure at the time of the procedure ==

== ENCOUNTER → 2021-07-23 | Outpatient (CLI) | payer OTHER | LOC: HYPER 10:46 | PROVIDERS: ATTEND Emergency Medicine Emergency Medical Services | DX: T81.49XD Infection following a procedure, other surgical site, subsequent encounter (principal); T81.31XD Disruption of external operation (surgical) wound, not elsewhere classified, subsequent encounter; L94.0 Localized scleroderma [morphea]; D57.3 Sickle-cell trait; E03.9 Hypothyroidism, unspecified; E66.9 Obesity, unspecified; G47.30 Sleep apnea, unspecified; I73.00 Raynaud's syndrome without gangrene; I10 Essential (primary) hypertension; M79.7 Fibromyalgia; K21.00 Gastro-esophageal reflux disease with esophagitis, without bleeding; K21.9 Gastro-esophageal reflux disease without esophagitis; F41.9 Anxiety disorder, unspecified; Z90.710 Acquired absence of both cervix and uterus; Z90.49 Acquired absence of other specified parts of digestive tract; Z68.29 Body mass index [BMI] 29.0-29.9, adult; Y83.8 Other surgical procedures as the cause of abnormal reaction of the patient, or of later complication, without mention of misadventure at the time of the procedure ==

== ENCOUNTER → 2021-07-30 | Outpatient (CLI) | payer OTHER | LOC: HYPER 09:02 | PROVIDERS: ATTEND Emergency Medicine | DX: T81.49XD Infection following a procedure, other surgical site, subsequent encounter (principal); T81.31XD Disruption of external operation (surgical) wound, not elsewhere classified, subsequent encounter; L94.0 Localized scleroderma [morphea]; D57.3 Sickle-cell trait; E03.9 Hypothyroidism, unspecified; E66.9 Obesity, unspecified; G47.30 Sleep apnea, unspecified; I73.00 Raynaud's syndrome without gangrene; I10 Essential (primary) hypertension; M79.7 Fibromyalgia; K21.00 Gastro-esophageal reflux disease with esophagitis, without bleeding; K21.9 Gastro-esophageal reflux disease without esophagitis; F41.9 Anxiety disorder, unspecified; Z90.710 Acquired absence of both cervix and uterus; Z90.49 Acquired absence of other specified parts of digestive tract; Z68.29 Body mass index [BMI] 29.0-29.9, adult; Y83.8 Other surgical procedures as the cause of abnormal reaction of the patient, or of later complication, without mention of misadventure at the time of the procedure ==

== ENCOUNTER → 2021-08-06 | Outpatient (CLI) | payer OTHER | LOC: HYPER 09:09 | PROVIDERS: ATTEND Emergency Medicine | DX: T81.49XD Infection following a procedure, other surgical site, subsequent encounter (principal); T81.31XD Disruption of external operation (surgical) wound, not elsewhere classified, subsequent encounter; L94.0 Localized scleroderma [morphea]; D57.3 Sickle-cell trait; E03.9 Hypothyroidism, unspecified; E66.9 Obesity, unspecified; G47.30 Sleep apnea, unspecified; I73.00 Raynaud's syndrome without gangrene; I10 Essential (primary) hypertension; M79.7 Fibromyalgia; K21.00 Gastro-esophageal reflux disease with esophagitis, without bleeding; K21.9 Gastro-esophageal reflux disease without esophagitis; F41.9 Anxiety disorder, unspecified; Z90.710 Acquired absence of both cervix and uterus; Z90.49 Acquired absence of other specified parts of digestive tract; Z68.29 Body mass index [BMI] 29.0-29.9, adult; Y83.8 Other surgical procedures as the cause of abnormal reaction of the patient, or of later complication, without mention of misadventure at the time of the procedure ==

== ENCOUNTER → 2021-08-13 | Outpatient (CLI) | payer OTHER | LOC: HYPER 10:26 | PROVIDERS: ATTEND Emergency Medicine Emergency Medical Services | DX: T81.49XD Infection following a procedure, other surgical site, subsequent encounter (principal); T81.31XD Disruption of external operation (surgical) wound, not elsewhere classified, subsequent encounter; L94.0 Localized scleroderma [morphea]; D57.3 Sickle-cell trait; E03.9 Hypothyroidism, unspecified; E66.9 Obesity, unspecified; G47.30 Sleep apnea, unspecified; I73.00 Raynaud's syndrome without gangrene; I10 Essential (primary) hypertension; M79.7 Fibromyalgia; K21.00 Gastro-esophageal reflux disease with esophagitis, without bleeding; K21.9 Gastro-esophageal reflux disease without esophagitis; F41.9 Anxiety disorder, unspecified; Z90.710 Acquired absence of both cervix and uterus; Z90.49 Acquired absence of other specified parts of digestive tract; Z68.29 Body mass index [BMI] 29.0-29.9, adult; Y83.8 Other surgical procedures as the cause of abnormal reaction of the patient, or of later complication, without mention of misadventure at the time of the procedure ==

== ENCOUNTER → 2021-08-28 | Outpatient (CLI) | payer OTHER | LOC: CAT 08-23 12:07 | PROVIDERS: ATTEND Surgery | DX: S31.109A Unspecified open wound of abdominal wall, unspecified quadrant without penetration into peritoneal cavity, initial encounter (principal); Z98.890 Other specified postprocedural states; X58.XXXA Exposure to other specified factors, initial encounter; Y93.89 Activity, other specified; Y92.89 Other specified places as the place of occurrence of the external cause; Y99.8 Other external cause status ==

== ENCOUNTER → 2021-08-31 | Outpatient (CLI) | payer OTHER | LOC: HYPER 07:34 | PROVIDERS: ATTEND Emergency Medicine | DX: T81.49XD Infection following a procedure, other surgical site, subsequent encounter (principal); T81.31XD Disruption of external operation (surgical) wound, not elsewhere classified, subsequent encounter; L94.0 Localized scleroderma [morphea]; D57.3 Sickle-cell trait; E03.9 Hypothyroidism, unspecified; E66.9 Obesity, unspecified; G47.30 Sleep apnea, unspecified; I73.00 Raynaud's syndrome without gangrene; I10 Essential (primary) hypertension; M79.7 Fibromyalgia; K21.00 Gastro-esophageal reflux disease with esophagitis, without bleeding; K21.9 Gastro-esophageal reflux disease without esophagitis; F41.9 Anxiety disorder, unspecified; Z90.710 Acquired absence of both cervix and uterus; Z90.49 Acquired absence of other specified parts of digestive tract; Z68.29 Body mass index [BMI] 29.0-29.9, adult; Y83.8 Other surgical procedures as the cause of abnormal reaction of the patient, or of later complication, without mention of misadventure at the time of the procedure ==

== ENCOUNTER → 2021-09-17 | Outpatient (CLI) | payer OTHER | LOC: HYPER 10:09 | PROVIDERS: ATTEND Emergency Medicine Emergency Medical Services | DX: T81.49XD Infection following a procedure, other surgical site, subsequent encounter (principal); T81.31XD Disruption of external operation (surgical) wound, not elsewhere classified, subsequent encounter; L94.0 Localized scleroderma [morphea]; D57.3 Sickle-cell trait; E03.9 Hypothyroidism, unspecified; E66.9 Obesity, unspecified; G47.30 Sleep apnea, unspecified; I73.00 Raynaud's syndrome without gangrene; I10 Essential (primary) hypertension; M79.7 Fibromyalgia; K21.00 Gastro-esophageal reflux disease with esophagitis, without bleeding; K21.9 Gastro-esophageal reflux disease without esophagitis; F41.9 Anxiety disorder, unspecified; Z90.710 Acquired absence of both cervix and uterus; Z90.49 Acquired absence of other specified parts of digestive tract; Z68.29 Body mass index [BMI] 29.0-29.9, adult; Y83.8 Other surgical procedures as the cause of abnormal reaction of the patient, or of later complication, without mention of misadventure at the time of the procedure ==